=== PATIENT | female | born 1955 | race Caucasian/White ===

== ENCOUNTER → 2020-09-08 | Outpatient (CLI) | payer MEDICARE, OTHER | END | disposition home or self-care (01) | LOC: LB 11:49 | DX: J45.909 Unspecified asthma, uncomplicated (principal) | CPT/HCPCS: 36600 ==

== ENCOUNTER → 2020-09-23 | Outpatient (CLI) | payer MEDICARE, OTHER | END | disposition home or self-care (01) | LOC: RD 18:14 | PROVIDERS: ATTEND Internal Medicine | DX: R06.02 Shortness of breath (principal); R05 Cough ==

== ENCOUNTER 2020-09-24 13:39 | Inpatient (IN) | payer OTHER, MEDICARE, SELFPAY ==
[~2020-09-24] VITALS: Ht 160 cm; Wt 68.5 kg
[2020-09-24 14:32] VITALS: Ht 160 cm; Wt 68.5 kg
[2020-09-24 19:01] LABS: CALCIUM 9.5 mg/dL (8.5-10.1); CARBON DIOXIDE 28.2 mmol/L (21-32); CREATININE SERUM 1.1 mg/dL (0.6-1.0); POTASSIUM SERUM 4.5 mmol/L (3.5-5.1)
[2020-09-24 19:06] LABS: BILIRUBIN TOTAL 0.28 mg/dL (0.20-1.00); C REACTIVE PROTEIN 7.4 mg/dL (<=0.9)
[2020-09-24 19:08] LABS: ALBUMIN 3.3 g/dL (3.4-5.0); TOTAL PROTEIN, SERUM 8.6 g/dL (6.4-8.2)
[2020-09-24 19:14] LABS: BASOPHIL % 0.6 % (0.2-1.3); PLATELET COUNT 248 x10^3mcL (179-408)
[2020-09-24 19:23] LABS: RED CELL DISTRIBUTION WIDTH 15.6 % (12.3-17.7)
[2020-09-24 20:30] LABS: microscopic required? YES; urine erythrocyte NEGATIVE (NEGATIVE)
[2020-09-25 02:47] LABS: T3 TOTAL 0.85 ng/mL
[2020-09-25 02:53] LABS: CHOLESTEROL/HDL RATIO 2.6; MAGNESIUM 1.6 mg/dL (1.8-2.4); PHOSPHOROUS 3.9 mg/dL (2.5-4.9)
[2020-09-25 03:06] LABS: FREE T4 0.84 ng/dL (0.76-1.46); FREE THYROXINE INDEX 2.1 ug/dL (1.4-4.5); T4(THYROXINE) 6.1 ug/dL (4.7-13.3)
[2020-09-25] MEDS ORDERED: PROAIR RES117 MCG/Ac INH (08:24)
[2020-09-25] MEDS ORDERED: PAXIL40 M1 PO (08:25)
[2020-09-25] MEDS ORDERED: MORPHABOND ER30 MG PO (08:26)
[2020-09-25] MEDS ORDERED: ASPIRIN CHILDRE81 MG PO (08:26)
[2020-09-25] MEDS ORDERED: NORCO 10-325 T1 EACH PO (08:26)
[2020-09-25] MEDS ORDERED: LASIX20 MG PO (08:27)
[2020-09-25] MEDS ORDERED: GLIPIZIDE XL10 M1 PO (08:27)
[2020-09-25] MEDS ORDERED: HYDROXYZIN10 MG/5 M2 PO (08:28)
[2020-09-25] MEDS ORDERED: ATORVASTATIN CA10 M1 PO (08:28)
[2020-09-25] MEDS ORDERED: SENNA8.6 M2 PO (08:29)
[2020-09-25] MEDS ORDERED: ACID REDUCER20 MG PO (08:29)
[2020-09-25] MEDS ORDERED: ZOF4 PO (08:30)
[2020-09-25] MEDS ORDERED: FORTAMET1000 MG PO (08:31)
[2020-09-25] MEDS ORDERED: ATIVAN0.5 M1 PO (08:31)
[2020-09-25] MEDS ORDERED: BACLOFEN5 MG PO (08:31)
[2020-09-25] MEDS ORDERED: ATRUD HHN (08:33)
[2020-09-25 09:39] LABS: BASOPHIL % 0.2 % (0.2-1.3); PLATELET COUNT 234 x10^3mcL (179-408)
[2020-09-25 09:44] LABS: RED CELL DISTRIBUTION WIDTH 15.4 % (12.3-17.7)
[2020-09-25 10:01] LABS: CALCIUM 9.4 mg/dL (8.5-10.1); CARBON DIOXIDE 22.9 mmol/L (21-32); CREATININE SERUM 1.1 mg/dL (0.6-1.0)
[2020-09-25 10:06] LABS: POTASSIUM SERUM 5.9 mmol/L (3.5-5.1)
[2020-09-25 15:19] LABS: CALCIUM 9.7 mg/dL (8.5-10.1); CARBON DIOXIDE 27.6 mmol/L (21-32)
[2020-09-25 23:17] VITALS: BP 184/74
[2020-09-26 05:40] VITALS: BP 129/62
[2020-09-26 08:39] LABS: CALCIUM 9.4 mg/dL (8.5-10.1); MAGNESIUM 1.6 mg/dL (1.8-2.4); PHOSPHOROUS 3.9 mg/dL (2.5-4.9); POTASSIUM SERUM 3.2 mmol/L (3.5-5.1)
[2020-09-26 08:58] VITALS: BP 143/69
[2020-09-26 12:08] LABS: BASOPHIL % 0.3 % (0.2-1.3); PLATELET COUNT 320 x10^3mcL (179-408)
[2020-09-26 13:27] VITALS: BP 116/61
[2020-09-26 15:30] LABS: RED CELL DISTRIBUTION WIDTH 15.5 % (12.3-17.7)
[2020-09-26 17:15] VITALS: BP 144/76
[2020-09-26 21:04] VITALS: BP 131/62
[2020-09-27 06:08] VITALS: BP 125/58
[2020-09-27 06:11] VITALS: BP 125/58
[2020-09-27 06:55] LABS: BASOPHIL % 0.1 % (0.2-1.3); PLATELET COUNT 332 x10^3mcL (179-408)
[2020-09-27 07:05] LABS: BILIRUBIN DIRECT 0.13 mg/dL (0.0-0.2); BILIRUBIN TOTAL 0.25 mg/dL (0.20-1.00)
[2020-09-27 07:06] LABS: ALBUMIN 3.2 g/dL (3.4-5.0); TOTAL PROTEIN, SERUM 8.6 g/dL (6.4-8.2)
[2020-09-27 07:21] LABS: RED CELL DISTRIBUTION WIDTH 15.6 % (12.3-17.7)
[2020-09-27 08:02] LABS: rbc morphology (normal/abnorm) NORMAL (NORMAL)
[2020-09-27 09:05] VITALS: BP 130/62
[2020-09-27 12:59] VITALS: BP 132/70
[2020-09-27 13:22] LABS: CALCIUM 9.2 mg/dL (8.5-10.1); CARBON DIOXIDE 27.9 mmol/L (21-32); CREATININE SERUM 1.1 mg/dL (0.6-1.0); MAGNESIUM 1.9 mg/dL (1.8-2.4); PHOSPHOROUS 3.7 mg/dL (2.5-4.9); POTASSIUM SERUM 3.7 mmol/L (3.5-5.1)
[2020-09-27] MEDS ORDERED: LASIX20 MG PO ×2 (15:04→15:16)
[2020-09-27] MEDS ORDERED: DECADRON6 MG PO (15:06)
[2020-09-27 15:29] VITALS: BP 132/70
== END 2020-09-27 16:50 | disposition home or self-care (01) | DRG 137 ==
LOC: ED 13:39 → DU 19:54
PROVIDERS: Emergency Medicine; ADMIT Family Medicine; ATTEND Family Medicine
PROC: XW033E5 Introduction of Remdesivir Anti-infective into Peripheral Vein, Percutaneous Approach, New Technology Group 5 (ICD-10-PCS; principal; 2020-09-26)
PROC: XW13325 Transfusion of Convalescent Plasma (Nonautologous) into Peripheral Vein, Percutaneous Approach, New Technology Group 5 (ICD-10-PCS; 2020-09-26)
DX: U07.1 COVID-19 (principal); J96.01 Acute respiratory failure with hypoxia; J96.02 Acute respiratory failure with hypercapnia; D68.59 Other primary thrombophilia; E11.22 Type 2 diabetes mellitus with diabetic chronic kidney disease; I50.9 Heart failure, unspecified; J12.89 Other viral pneumonia; I13.0 Hypertensive heart and chronic kidney disease with heart failure and stage 1 through stage 4 chronic kidney disease, or unspecified chronic kidney disease; N18.30 Chronic kidney disease, stage 3 unspecified; E11.65 Type 2 diabetes mellitus with hyperglycemia; N39.0 Urinary tract infection, site not specified; F32.9 Major depressive disorder, single episode, unspecified; F41.9 Anxiety disorder, unspecified; D64.9 Anemia, unspecified; E78.00 Pure hypercholesterolemia, unspecified; L40.9 Psoriasis, unspecified; J44.0 Chronic obstructive pulmonary disease with (acute) lower respiratory infection; J45.909 Unspecified asthma, uncomplicated; E86.0 Dehydration; I25.10 Atherosclerotic heart disease of native coronary artery without angina pectoris; Z95.1 Presence of aortocoronary bypass graft; B96.20 Unspecified Escherichia coli [E. coli] as the cause of diseases classified elsewhere; Z79.84 Long term (current) use of oral hypoglycemic drugs; Z79.82 Long term (current) use of aspirin; J44.1 Chronic obstructive pulmonary disease with (acute) exacerbation
CPT/HCPCS: 36600; 82962; 83880; 84439; 85378; 87804; C9113; G0378; J0456; J0696; J1100; J1815; J1940; J2270; J2405; J2920; J7050; J7060; U0003